=== PATIENT | male | born 1990 | race Caucasian/White ===

== ENCOUNTER 2016-12-19 11:18 | Emergency (ER) | payer OTHER, SELFPAY ==
[2016-12-19] MEDS ORDERED: Sodium Chloride 0.9% 1,000 ML IV ONE (11:53)
[2016-12-19] MEDS ORDERED: Sodium Chloride 0.9% 1,000 ML ONE (12:38)
[2016-12-19 12:40] LABS: BASO % 0.4 % (0.0-2.0); EOS # 0.1 K/uL (0.0-0.7); HEMATOCRIT 45.1 % (35.0-51.0); LYMPH % 23.2 % (20.0-40.0); MEAN CELL VOLUME 84.5 fL (80.0-94.0); MEAN CORPUSCULAR HEMOGLOBIN 28.8 pg (27.0-31.0); MEAN PLATELET VOLUME 7.6 fL (7.2-11.7); MONO # 0.7 K/uL (0.0-0.8); MONO % 7.9 % (0.0-10.0); RED CELL DISTRIBUTION WIDTH 13.4 % (11.5-14.5); WHITE BLOOD COUNT 8.6 K/uL (4.8-10.8)
[2016-12-19 12:57] LABS: RBC URINE 1 /hpf (0-3); URINE BILIRUBIN NEGATIVE (NEGATIVE); URINE BLOOD NEGATIVE (NEGATIVE); URINE COLOR Yellow (YELLOW); URINE GLUCOSE (UA) NORMAL (Normal); URINE KETONE NEGATIVE (NEGATIVE); URINE LEUKOCYTE ESTERASE NEG Leu/uL (Negative); URINE PROTEIN NEGATIVE (NEGATIVE); URINE UROBILINOGEN NORMAL mg/dL (0.2-1.0); WBC URINE < 1 /hpf (0-5)
[2016-12-19 13:33] LABS: CHLORIDE 102 mmol/L (98-107); POTASSIUM 3.4 mmol/L (3.6-5.2); SODIUM 136 mmol/L (132-148)
[2016-12-19 13:35] LABS: AST/SGOT 16 U/L (17-59); BILIRUBIN,TOTAL 0.7 mg/dL (0.2-1.3); CARBON DIOXIDE 23 mmol/L (22-30); GFR AFRICAN-AMERICAN > 60
[2016-12-19 13:36] LABS: ALB/GLOB RATIO 1.3 (1.0-2.1); ALKALINE PHOSPHATASE 61 U/L (38-126); ALT/SGPT 23 U/L (21-72); BLOOD UREA NITROGEN 8 mg/dL (9-20); CALCIUM 6.8 mg/dl (8.6-10.4); GLUCOSE,RANDOM 73 mg/dL (75-110); TOTAL PROTEIN 6.2 g/dL (6.3-8.3)
--- NOTE | 2016-12-19 14:12 | RAD ---
PROCEDURE: Radiographs of the chest and abdomen (obstructive series) HISTORY: Abd Pain COMPARISON: No prior. TECHNIQUE: AP radiograph of the chest, with upright and supine radiographs of the abdomen. FINDINGS: CHEST: Lungs: No focal consolidation. There there is a small approximately 3.2 mm nodule left lower lung field overlying the superior margin of the left posterior 9th rib that could represent artifact including vessel on end artifact versus small nodule or granuloma. Followup nonemergent noncontrast CT scan of the chest suggested for further evaluation. Note that this report was placed in PA review folder for this purpose. Cardiovascular: Normal size heart. No pulmonary vascular congestion. Pleura: No pleural fluid. No pneumothorax. Other findings: None. ABDOMEN AND PELVIS: Bowel: Moderate amount of stool seen within the at ascending and transverse colon consistent mild constipation. No evidence of mechanical obstruction. Free air: None. Bones: Unremarkable. Other findings: None. IMPRESSION: Unremarkable radiographs of chest and abdomen. No acute cardiopulmonary disease. Small nodular density left lower lung field could represent artifact versus small granuloma. Followup nonemergent CT scan of the chest recommended. Note that this report was placed in PA review folder for followup No evidence of acute mechanical bowel obstruction. Findings suggest mild constipation
[2016-12-19] MEDS ORDERED: Iohexol 300 100 ML IJ ONE (14:35)
--- NOTE | 2016-12-19 16:46 | CT ---
PROCEDURE: CT abdomen pelvis dated 12/19/2016 HISTORY: Pain. COMPARISON: No prior TECHNIQUE: Contiguous axial images of the abdomen and pelvis performed following intravenous injection of approximately 100 cc Omnipaque 300 contrast material. Examination is limited due to the lack of oral contrast material and motion artifact. Radiation dose: Total exam DLP = 236.97 mGy-cm. This CT exam was performed using one or more of the following dose reduction techniques: Automated exposure control, adjustment of the mA and/or kV according to patient size, and/or use of iterative reconstruction technique. FINDINGS: LOWER THORAX: Mild passive/dependent type atelectasis both posterior lower lung odom. No effusion or basilar pneumothorax. There is a tiny calcified granuloma on bordering the pleural surface left posterior sulcus. . Small hiatal hernia. Heart size within range of normal. No evidence of pericardial effusion Bilateral changes of gynecomastia. LIVER: Liver exhibits normal size measuring approximately 14.6 mm cm in CC dimension. No obvious hepatic mass or collection. Portal and splenic veins are opacified. GALLBLADDER AND BILE DUCTS: Gallbladder is physiologically distended. No definitive evidence of intraluminal gallbladder calculi. The PANCREAS: The pancreas is poorly seen due to motion artifact as well as the lack of oral contrast material. No gross pancreatic mass is seen. SPLEEN: Spleen exhibits normal size and attenuation pattern. ADRENALS: No adrenal lesions. KIDNEYS AND URETERS: Kidneys demonstrate relatively symmetric nephrograms. No evidence of nephrolithiasis or hydronephrosis. BLADDER: Urinary bladder is markedly distended. Questionable small amount of free fluid within the posterior pelvis abutting the posterior margin of the urinary bladder versus bladder diverticula. . Rule out bladder outlet obstruction. REPRODUCTIVE: Prostate gland measures approximately 3.86 cm in transverse dimension. Seminal vesicles unremarkable. APPENDIX: What appears represent a normal appendix best seen on axial image number [id number]. No obvious periappendiceal inflammatory changes. BOWEL: Evaluation of the bowel is limited due to the lack of oral contrast. Stomach is incompletely distended which presumably accounts thick-walled appearance. Visualized loops of small bowel exhibit normal contour and caliber. No evidence of acute mechanical small bowel obstruction. PERITONEUM: No gross free intraperitoneal air so far as can be seen. Questionable bladder diverticula versus small amount of free fluid within the posterior pelvis Bilateral inguinal hernias containing which could represent granulation tissue or possibly hyperdense fluid LYMPH NODES: Unremarkable. No enlarged lymph nodes. VASCULATURE: Unremarkable. No aortic aneurysm. BONES: Bilateral spondylolysis and less than grade 1 spondylolisthesis L5-S1 level. OTHER FINDINGS: None. IMPRESSION: Limited study as above. The urinary bladder is markedly distended. In addition, there is questionable small amount of free fluid within the pelvis posterior to the bladder versus bladder diverticula. . Rule out bladder outlet obstruction. No evidence to suggest acute appendicitis. Bilateral spondylolysis and less than grade 1 spondylolisthesis as above Bilateral inguinal hernias containing on what could represent granulation tissue or possibly some hyperdense fluid See above discussion for additional findings and details. These findings discussed with emergency room VASYL Lorenz at approximately 4:40 p.m. with written down and read back verification.
--- NOTE | 2016-12-19 16:54 | C.PDOC ---
History Of Present Illness Patient is a 26 y/o male that presents to the emergency department for evaluation of epigastric abdominal pain radiating to RLQ, and associated nausea. Pt reports normal BM yesterday. Pt denies having similar symptoms in the past, vomiting, diarrhea, testicular pain, dysuria, hematuria, or any other associated symptoms at this time. Time Seen by Provider: 12/19/16 11:31 Chief Complaint (Nursing): Abdominal Pain History Per: Patient History/Exam Limitations: no limitations Current Symptoms Are (Timing): Still Present Location Of Pain/Discomfort: RLQ, Epigastric Radiation Of Pain To:: None Quality Of Discomfort: "Pain" Associated Symptoms: Nausea. denies: Fever, Chills, Vomiting, Diarrhea, Loss Of Appetite, Back Pain, Chest Pain, Constipation, Urinary Symptoms Exacerbating Factors: None Alleviating Factors: None Last Bowel Movement: Yesterday Recent travel outside of the [place]: No Additional History Per: Patient Past Medical History Reviewed: Historical Data, Nursing Documentation, Vital Signs Vital Signs: Last Vital Signs Temp 98.5 F 12/19/16 18:25 Pulse 95 H 12/19/16 18:25 Resp 16 12/19/16 18:25 BP 98/62 L 12/19/16 18:25 Pulse Ox 100 12/20/16 14:46 - Medical History PMH: Denies: Diabetes, Hepatitis, HIV, HTN, Seizures, Sexually Transmitted Disease Family History: States: Unknown Family Hx - Social History Hx Tobacco Use: No Hx Alcohol Use: Yes (social) Hx Substance Use: No - Immunization History Hx Tetanus Toxoid Vaccination: No Hx Influenza Vaccination: No Hx Pneumococcal Vaccination: No Review Of Systems Except As Marked, All Systems Reviewed And Found Negative. Constitutional: Negative for: Fever, Chills Cardiovascular: Negative for: Chest Pain, Palpitations Respiratory: Negative for: Shortness of Breath Gastrointestinal: Positive for: Nausea, Abdominal Pain. Negative for: Vomiting , Diarrhea, Constipation Genitourinary: Negative for: Dysuria, Frequency, Hematuria Musculoskeletal: Negative for: Back Pain Physical Exam - Physical Exam Appears: Non-toxic, No Acute Distress Skin: Normal Color, Warm, Dry Head: Atraumatic, Normacephalic Eye(s): bilateral: Normal Inspection, EOMI Nose: Normal Oral Mucosa: Moist Neck: Normal ROM, Supple Chest: Symmetrical, No Tenderness Cardiovascular: Rhythm Regular, No Murmur Respiratory: Normal Breath Sounds, No Rales, No Rhonchi, No Wheezing Gastrointestinal/Abdominal: Soft, Tenderness (RLQ, LLQ), No Guarding, No Rebound Extremity: Normal ROM Neurological/Psych: Oriented x3, Normal Speech, Normal Cognition ED Course And Treatment - Laboratory Results Result Diagrams: 12/19/16 12:36 12/19/16 13:18 O2 Sat by Pulse Oximetry: 100 (on RA) Pulse Ox Interpretation: Normal - CT Scan/US Abd & pelvis CT Other Rad Studies (CT/US): Read By Radiologist, Radiology Report Reviewed CT/US Interpretation: FINDINGS: LOWER THORAX: Mild passive/dependent type atelectasis both posterior lower lung odom. No effusion or basilar pneumothorax. There is a tiny calcified granuloma on bordering the pleural surface left posterior sulcus. . Small hiatal hernia. Heart size within range of normal. No evidence of pericardial effusion. Bilateral changes of gynecomastia. LIVER: Liver exhibits normal size measuring approximately 14.6 mm cm in CC dimension. No obvious hepatic mass or collection. Portal and splenic veins are opacified. GALLBLADDER AND BILE DUCTS: Gallbladder is physiologically distended. No definitive evidence of intraluminal gallbladder calculi. The. PANCREAS: The pancreas is poorly seen due to motion artifact as well as the lack of oral contrast material. No gross pancreatic mass is seen. SPLEEN: Spleen exhibits normal size and attenuation pattern. ADRENALS: No adrenal lesions. KIDNEYS AND URETERS: Kidneys demonstrate relatively symmetric nephrograms. No evidence of nephrolithiasis or hydronephrosis. BLADDER: Urinary bladder is markedly distended. Questionable small amount of free fluid within the posterior pelvis abutting the posterior margin of the urinary bladder versus bladder diverticula. . Rule out bladder outlet obstruction. REPRODUCTIVE: Prostate gland measures approximately 3.86 cm in transverse dimension. Seminal vesicles unremarkable. APPENDIX: What appears represent a normal appendix best seen on axial image number [id number]. No obvious periappendiceal inflammatory changes. BOWEL: Evaluation of the bowel is limited due to the lack of oral contrast. Stomach is incompletely distended which presumably accounts thick-walled appearance. Visualized loops of small bowel exhibit normal contour and caliber. No evidence of acute mechanical small bowel obstruction. PERITONEUM: No gross free intraperitoneal air so far as can be seen. Questionable bladder diverticula versus small amount of free fluid within the posterior pelvis. Bilateral inguinal hernias containing which could represent granulation tissue or possibly hyperdense fluid. LYMPH NODES: Unremarkable. No enlarged lymph nodes. VASCULATURE: Unremarkable. No aortic aneurysm. BONES: Bilateral spondylolysis and less than grade 1 spondylolisthesis L5-S1 level. OTHER FINDINGS: None. IMPRESSION: Limited study as above. The urinary bladder is markedly distended. In addition, there is questionable small amount of free fluid within the pelvis posterior to the bladder versus bladder diverticula. . Rule out bladder outlet obstruction. No evidence to suggest acute appendicitis. Bilateral spondylolysis and less than grade 1 spondylolisthesis as above. Bilateral inguinal hernias containing on what could represent granulation tissue or possibly some hyperdense fluid. See above discussion for additional findings and details. These findings discussed with emergency room VASYL Lorenz at approximately 4:40 p.m. with written down and read back verification. Progress Note: Labs, obstructive series x-ray was ordered and reviewed initially. Patient was given IV fluids, Zofran, and Toradol in the ER. On re- eval, pt reports persistent pain. Abd & pelvis CT was ordered, and reviewed. CT reviewed. Pt denies any urinary symptoms. No difficulty urinating. Bladder scanned preformed after urination, 0cc. No retention. Pt pain has improved. Glucose 72- pt given juice- Tolerating PO. (-) fever/n/v. Pulmonary nodule noted on CT, explain to pt with ANA Shah, and copy of CT given for follow up out pt. No SOB. No chest pain. No fever. Instructed to follow up with PMD in 1-2 days or return to ER if symptoms persist or worsen. Disposition - Disposition Referrals: Mike Harvey MD [Staff Provider] - [facility] [Outside] Disposition: HOME/ ROUTINE Disposition Time: 17:59 Condition: STABLE Additional Instructions: Vaya a alexandre mdico o la clnica en 2-5 mc sin falta, para mas evaluacin. [place] los medicamentos baljinder indicado. Volver a la fredi de emergencia en cualquier momento si los sntomas persisten o empeoran. Prescriptions: Psyllium Husk [Metamucil] 2 cap PO DAILY #20 capsule Instructions: Constipation (ED) Print Language: BURMESE - Clinical Impression Clinical Impression: Constipation, Abdominal pain - PA / LOGISTICS PLANNING ENGINEER / Resident Statement /DO has reviewed & agrees with the documentation as recorded. - Scribe Statement The provider has reviewed the documentation as recorded by the Scribe Nuha Huber All medical record entries made by the Juanibfreddie were at my direction and personally dictated by me. I have reviewed the chart and agree that the record accurately reflects my personal performance of the history, physical exam, medical decision making, and the department course for this patient. I have also personally directed, reviewed, and agree with the discharge instructions and disposition.
[2016-12-19 18:38] VITALS: BP 98/62; PULSE 95; RESP 16; TEMP 98.5
[2016-12-20 13:11] VITALS: O2SAT 100
== END 2016-12-19 18:37 | disposition home or self-care (01) ==
LOC: C.ER 11:18
DX: K59.00 Constipation, unspecified (principal); R10.9 Unspecified abdominal pain
CPT/HCPCS: 74022; 74177; 80053; 81001; 83690; 85025; 87086; 96361; 96374; 96375; 99285; J1885; J2405; J7040; Q9967

== ENCOUNTER 2017-12-01 16:07 | Emergency (ER) | payer OTHER ==
[2017-12-01 16:07] VITALS: BMI 19.8
[2017-12-01] MEDS ORDERED: Sodium Chloride 0.9% 1,000 ML IV ONE (16:55)
--- NOTE | 2017-12-01 16:57 | C.PDOC ---
History Of Present Illness <Yessenia Bhakta - Last Filed: 12/01/17 18:49> <Loy Martínez - Last Filed: 12/01/17 19:55> 27 yo male come in for evaluation of RLQ pain gradually developed for past 2 days associated with nausea. Otherwise, pt denies fever, chills, recent illness , sore throat,m CP, SOB, dyspnea, diaphoresis, vomiting, diarrhea, hematemesis, melena, ,UTI sx, hematuria, back pain. Ambulate to Ed for evaluation, not in any apparent distress. (Yessenia Bhakta) History Per: Patient <Yessenia Bhakta - Last Filed: 12/01/17 18:49> <Loy Martínez - Last Filed: 12/01/17 19:55> Time Seen by Provider: 12/01/17 16:17 Chief Complaint (Nursing): Abdominal Pain Past Medical History Reviewed: Historical Data, Nursing Documentation, Vital Signs - Medical History PMH: Denies: Diabetes, Hepatitis, HIV, HTN, Seizures, Sexually Transmitted Disease Surgical History: No Surg Hx Family History: States: Unknown Family Hx - Social History Hx Tobacco Use: No Hx Alcohol Use: Yes (social) Hx Substance Use: No - Immunization History Hx Tetanus Toxoid Vaccination: No Hx Influenza Vaccination: No Hx Pneumococcal Vaccination: No <DeidraAsia collinsYessenia - Last Filed: 12/01/17 18:49> Vital Signs: Last Vital Signs Temp 98.5 F 12/01/17 16:16 Pulse 87 12/01/17 16:16 Resp 20 12/01/17 16:16 BP 124/86 12/01/17 16:16 Pulse Ox 99 12/01/17 18:52 Review Of Systems Except As Marked, All Systems Reviewed And Found Negative. Constitutional: Negative for: Fever, Chills ENT: Negative for: Throat Pain, Throat Swelling Cardiovascular: Negative for: Chest Pain Respiratory: Negative for: Cough, Shortness of Breath, Wheezing Gastrointestinal: Positive for: Nausea, Abdominal Pain. Negative for: Vomiting , Diarrhea, Melena, Hematochezia, Hematemesis Genitourinary: Negative for: Dysuria, Frequency, Incontinence Musculoskeletal: Negative for: Neck Pain, Back Pain Skin: Negative for: Rash Neurological: Negative for: Weakness, Numbness, Headache, Dizziness <Yessenia Bhakta - Last Filed: 12/01/17 18:49> Physical Exam - Physical Exam Appears: Well, Non-toxic, No Acute Distress Skin: Normal Color, Warm, Dry, No Rash Head: Normacephalic Eye(s): bilateral: PERRL Nose: No Flaring Oral Mucosa: Moist Tongue: Normal Appearing Lips: Normal Appearing Throat: No Drooling Neck: Trachea Midline, Supple Cardiovascular: Rhythm Regular, No Murmur Respiratory: No Decreased Breath Sounds, No Accessory Muscle Use, No Stridor, No Wheezing Gastrointestinal/Abdominal: Soft, Tenderness (RLQ tenderness, mild), No Distention, No Guarding, No Rebound Back: No CVA Tenderness Extremity: Normal ROM, No Deformity, No Swelling Neurological/Psych: Oriented x3, Normal Speech <Yessenia Bhakta - Last Filed: 12/01/17 18:49> ED Course And Treatment - Laboratory Results Result Diagrams: 12/01/17 17:38 12/01/17 17:38 Lab Interpretation: Normal O2 Sat by Pulse Oximetry: 99 Pulse Ox Interpretation: Normal Progress Note: On re-eval, pt remained stable, afebrile, hemodynamicaly stable. Non-toxic. Abd: benign, (-) guarding, (-) rebound. back: (-) CVA tenderness. Blood work review, no leukocytosis, no other acute findings. UA- normal study. CT abd/pelvis w/IV pending r/o appendicitis. case discussed with , sign out: CT, re-eval , dispo. <Yessenia Bhakta - Last Filed: 12/01/17 18:49> - Laboratory Results Result Diagrams: 12/01/17 17:38 12/01/17 17:38 Pulse Ox Interpretation: Normal Reevaluation Time: 19:54 Reassessment Condition: Improved <Loy Martínez - Last Filed: 12/01/17 19:55> Disposition - Disposition Disposition Time: 18:51 <Yessenia Bhakta - Last Filed: 12/01/17 18:49> Counseled Patient/Family Regarding: Studies Performed, Diagnosis, Need For Followup, Rx Given <Loy Martínez - Last Filed: 12/01/17 19:55> - Disposition Disposition: HOME/ ROUTINE Condition: FAIR Additional Instructions: Please return if symptoms recur Prescriptions: Ondansetron ODT [Zofran ODT] 1 odt PO BID PRN #6 odt PRN Reason: Nausea/Vomiting Instructions: Nausea and Vomiting, Adult (DC), Acute Abdomen (Belly Pain), Adult (DC) Forms: [employer] (Telugu) - Clinical Impression Clinical Impression: Right lower quadrant abdominal pain, Nausea Physician Patient Turnover Patient Signed Over To: Loy Martínez Handoff Comments: Pending: Abd/pelvis, re-eval, dispo <Yessenia Bhakta - Last Filed: 12/01/17 18:49>
[2017-12-01] MEDS ORDERED: Sodium Chloride 0.9% 1,000 ML ONE (17:16)
[2017-12-01 17:44] LABS: BASO % 0.6 % (0.0-2.0); EOS # 0.3 K/uL (0.0-0.7); EOS % 4.4 % (0.0-4.0); LYMPH # 2.5 K/uL (1.0-4.3); LYMPH % 40.4 % (20.0-40.0); MEAN CELL VOLUME 84.7 fL (80.0-94.0); MEAN CORPUSCULAR HEMOGLOBIN 29.3 pg (27.0-31.0); MEAN CORPUSCULAR HGB CONC 34.6 g/dL (33.0-37.0); MEAN PLATELET VOLUME 7.6 fL (7.2-11.7); MONO # 0.6 K/uL (0.0-0.8); NEUT # 2.8 K/uL (1.8-7.0); NEUT % 45.6 % (50.0-75.0); RBC 5.44 Mil/uL (4.40-5.90); RED CELL DISTRIBUTION WIDTH 13.7 % (11.5-14.5); WHITE BLOOD COUNT 6.2 K/uL (4.8-10.8)
[2017-12-01 17:48] LABS: SQUAMOUS EPITHIAL < 1 /hpf (0-5); URINE BILIRUBIN NEGATIVE (NEGATIVE); URINE BLOOD NEGATIVE (NEGATIVE); URINE CLARITY Clear (Clear); URINE COLOR Yellow (YELLOW); URINE GLUCOSE (UA) NORMAL (Normal); URINE LEUKOCYTE ESTERASE NEG Leu/uL (Negative); URINE PROTEIN NEGATIVE (NEGATIVE); URINE UROBILINOGEN NORMAL mg/dL (0.2-1.0)
[2017-12-01 17:57] LABS: ALB/GLOB RATIO 1.2 (1.0-2.1); ALT/SGPT 21 U/L (21-72); AST/SGOT 24 U/L (17-59); BLOOD UREA NITROGEN 13 mg/dL (9-20); CALCIUM 9.4 mg/dl (8.6-10.4); GFR AFRICAN-AMERICAN > 60; GFR NON-AFRICAN AMERICAN > 60; LIPASE 95 U/L (23-300)
[2017-12-01] MEDS ORDERED: Iohexol 300 100 ML IJ ONE (18:10)
--- NOTE | 2017-12-01 19:13 | CT ---
PROCEDURE: CT Abdomen and Pelvis with contrast HISTORY: RLQ pain COMPARISON: Abdomen pelvis CT with contrast 01/24/2017. TECHNIQUE: Following the intravenous administration of iodinated contrast material, a CT examination of the abdomen and pelvis performed from the domes of the diaphragms to the symphysis pubis with reformatted datasets provided not only axial but also sagittal and coronal planes. Oral contrast was not administered as per referring physician request. Contrast dose: Omnipaque 300, 100 cc Radiation dose: Total exam DLP = 208.17 mGy-cm. This CT exam was performed using one or more of the following dose reduction techniques: Automated exposure control, adjustment of the mA and/or kV according to patient size, and/or use of iterative reconstruction technique. FINDINGS: LOWER THORAX: A small hiatal hernia is appreciated once again with the lung bases otherwise unremarkable. LIVER: Unremarkable. No gross lesion or ductal dilatation. GALLBLADDER AND BILE DUCTS: Unremarkable. PANCREAS: Unremarkable. No gross lesion or ductal dilatation. SPLEEN: Unremarkable. ADRENALS: Unremarkable. No mass. KIDNEYS AND URETERS: Unremarkable. No hydronephrosis. No solid mass. VASCULATURE: Unremarkable. No aortic aneurysm. BOWEL: Stomach is decompressed. Moderate fecal loading is seen throughout the ascending through proximal to mid transverse colon segments and is limited through the remainder of the colon. . No obstruction. No gross mural thickening. APPENDIX: Normal appendix. PERITONEUM: Trace fluid is seen in the dependent pelvis of uncertain origin. LYMPH NODES: Unremarkable. No enlarged lymph nodes. BLADDER: Unremarkable. REPRODUCTIVE: Unremarkable. BONES: Stable borderline spondylolisthesis L5-S1 due to bilateral spondylolysis at L5. No significant interval change appreciated here. OTHER FINDINGS: Fluid is seen within the bilateral mid and distal inguinal canals versus potential undescended testicles, or less likely, granulation tissue. The appearance here is not significantly changed in the interval. IMPRESSION: 1. Normal appearing appendix. 2. Trace fluid again seen in the dependent pelvis, of uncertain origin. 3. No bowel or urinary tract obstruction, mesenteric edema or free intraperitoneal gas. 4. Fluid is once again questioned within the bilateral inguinal canals versus possible undescended testicles or, less likely, granulation tissue.
[2017-12-01 20:04] VITALS: BP 106/69; PULSE 78; RESP 18; TEMP 98.3; O2SAT 100
== END 2017-12-01 20:03 | disposition home or self-care (01) ==
LOC: C.ER 16:07
DX: R11.0 Nausea (principal); R10.31 Right lower quadrant pain
CPT/HCPCS: 74177; 80053; 81001; 83690; 85025; 96361; 96374; 96375; 99284; J1885; J2405; J7040; Q9967

== ENCOUNTER 2017-12-10 20:17 | Emergency (ER) | payer OTHER ==
[2017-12-10 20:17] VITALS: BMI 19.8
[2017-12-10 20:46] VITALS: BP 127/89; PULSE 88; RESP 16; TEMP 98.2; O2SAT 99
--- NOTE | 2017-12-10 21:01 | C.PDOC ---
History Of Present Illness 27 y/o male presents to the ED complaining of crampy abdominal pain, occurring intermittently over the past few months. He states pain is unchanged from prior episodes. Patient was seen here on 12/01 for the same and had normal work-up including labs and CT A/P. CT did reveal large stool burden. Patient reports he eats infrequently. He is also complaining of bright red blood per rectum, noticed this evening. Otherwise denies any fevers, chills, vomiting, or diarrhea. Patient denies recent anal intercourse. Time Seen by Provider: 12/10/17 20:46 Chief Complaint (Nursing): Abdominal Pain History Per: Patient History/Exam Limitations: no limitations Onset/Duration Of Symptoms: Intermittent Episodes Current Symptoms Are (Timing): Still Present Quality Of Discomfort: Cramping Past Medical History Reviewed: Historical Data, Nursing Documentation, Vital Signs Vital Signs: Last Vital Signs Temp 98.2 F 12/10/17 20:34 Pulse 88 12/10/17 20:34 Resp 16 12/10/17 20:34 BP 127/89 12/10/17 20:34 Pulse Ox 99 12/10/17 21:06 - Medical History PMH: No Chronic Diseases Denies: Diabetes, Hepatitis, HIV, HTN, Seizures, Sexually Transmitted Disease Surgical History: No Surg Hx Family History: States: Unknown Family Hx - Social History Hx Tobacco Use: No Hx Alcohol Use: No (social) Hx Substance Use: No - Immunization History Hx Tetanus Toxoid Vaccination: No Hx Influenza Vaccination: Yes Hx Pneumococcal Vaccination: No Review Of Systems Except As Marked, All Systems Reviewed And Found Negative. Constitutional: Negative for: Fever, Chills, Weakness Gastrointestinal: Positive for: Abdominal Pain, Other (Rectal bleeding). Negative for: Vomiting, Diarrhea Physical Exam - Physical Exam Appears: Non-toxic, No Acute Distress Skin: Normal Color, Warm, Dry Head: Atraumatic, Normacephalic Eye(s): bilateral: Normal Inspection, PERRL, EOMI Nose: Normal Oral Mucosa: Moist Neck: Normal ROM, Supple Chest: Symmetrical Cardiovascular: Rhythm Regular, No Murmur Respiratory: Normal Breath Sounds, No Accessory Muscle Use, No Rales, No Rhonchi , No Wheezing Gastrointestinal/Abdominal: Soft, No Tenderness, No Guarding, No Rebound, Other (Thin habitus) Rectal: Normal Exam, Rectal Tone (wnl), No Hemorrhoids, No Other (gross blood) Extremity: Bilateral: Atraumatic, Normal Color And Temperature, Normal ROM Pulses: Left Dorsalis Pedis: Normal, Right Dorsalis Pedis: Normal Neurological/Psych: Oriented x3, Normal Speech, Other (No focal deficits) Gait: Steady Additional Physical Exam Comments: Exam chaperoned by ED CP Isaiah ED Course And Treatment O2 Sat by Pulse Oximetry: 99 (RA) Pulse Ox Interpretation: Normal Medical Decision Making Medical Decision Making: Impression: persistent colicky abd discomfort likely gas/stool as noted in CT 9 days ago diet and exercise educated. trial laxative now. Disposition Doctor Will See Patient In The: Office Counseled Patient/Family Regarding: Studies Performed, Diagnosis - Disposition Referrals: [facility] [Outside] [facility] [Outside[facility] Disposition: HOME/ ROUTINE Disposition Time: 21:01 Condition: GOOD Additional Instructions: jose g un purgante ahora come mas verduras y frutas crudas diarios Jose G un purgante occasionalment baljinder necessario Sigue en [facility]- baljinder necessario. Prescriptions: Magnesium Citrate [Citrate of Magnesia] 300 ml PO ONCE PRN #1 solution PRN Reason: Constipation Instructions: Gas and Bloating (ED) Forms: [employer] (Turkish) Print Language: TURKISH - POA Present On Arrival: None - Clinical Impression Clinical Impression: Abdominal colic - Scribe Statement The provider has reviewed the documentation as recorded by the Scribe (China Mendez) Provider Attestation: All medical record entries made by the Scribe were at my direction and personally dictated by me. I have reviewed the chart and agree that the record accurately reflects my personal performance of the history, physical exam, medical decision making, and the department course for this patient. I have also personally directed, reviewed, and agree with the discharge instructions and disposition.
== END 2017-12-10 21:10 | disposition home or self-care (01) ==
LOC: C.ER 20:17
DX: R10.84 Generalized abdominal pain (principal)